=== PATIENT | female | born 1955 | race American Indian/Alaskan Native ===

== ENCOUNTER 2016-11-29 19:57 | Emergency (ER) | payer SELFPAY ==
[2016-11-29] MEDS ORDERED: TYLENOL ONE (20:15)
[2016-11-29] MEDS ORDERED: TYLENOL PO ONE (21:11)
[2016-11-29 21:15] VITALS: BP 153/105
== END 2016-11-29 22:11 | disposition left against medical advice (07) ==
LOC: ED 19:57
DX: M54.2 Cervicalgia (principal); M25.511 Pain in right shoulder; M25.551 Pain in right hip; Z53.21 Procedure and treatment not carried out due to patient leaving prior to being seen by health care provider

== ENCOUNTER 2016-11-30 18:20 | Emergency (ER) | payer OTHER, BC ==
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
[2016-11-30 21:58] VITALS: BP 168/99
[2016-11-30] MEDS ORDERED: APRESOLINE PO ONE (22:00)
== END 2016-11-30 21:57 | disposition home or self-care (01) ==
LOC: ED 18:20
DX: S16.1XXA Strain of muscle, fascia and tendon at neck level, initial encounter (principal); I10 Essential (primary) hypertension; V49.9XXA Car occupant (driver) (passenger) injured in unspecified traffic accident, initial encounter; Y93.89 Activity, other specified; Y99.9 Unspecified external cause status; Y92.410 Unspecified street and highway as the place of occurrence of the external cause
CPT/HCPCS: 72040